=== PATIENT | female | born 1945 | race Caucasian/White ===

== ENCOUNTER 2018-06-25 00:36 | Inpatient (IN) | payer OTHER ==
[~2018-06-25] VITALS: Ht 160 cm; Wt 82.1 kg
[~2018-06-25 00:36] MED LIST: MOBIC7.5 M1 PO
--- NOTE | 2018-06-25 00:59 | ED GENERAL ADULT ---
History of Present Illness General Chief Complaint: General Adult Stated Complaint: PT C/O INCONTINENCE BOTH URINE/STOOL X'S 2 DAYS Source: patient, family Exam Limitations: no limitations Vital Signs & Intake/Output Vital Signs & Intake/Output Vital Signs Date Time Temp Pulse Resp B/P B/P Pulse O2 O2 Flow FiO2 Mean Ox Delivery Rate 06/25 0337 95.0 57 20 146/67 97 Room Air 06/25 0125 95 Room Air Room Air 06/25 0106 98.7 56 20 113/52 97 Room Air 06/25 0058 56 113/52 Allergies Coded Allergies: acetaminophen (From PERCOCET) (Intermediate, BILATERAL LEG SWELLING 11/09/17) oxycodone (From PERCOCET) (Intermediate, BILATERAL LEG SWELLING 11/09/17) Reconcile Medications Aripiprazole (Abilify) 10 MG TABLET 1 TAB PO DAILY DEPRESSION (Reported) Clonazepam 0.5 MG TABLET 1 TAB PO TID ANXIETY (Reported) Escitalopram Oxalate 10 MG TABLET 1 TAB PO DAILY DEPRESSION (Reported) Ferrous Sulfate 325 MG (65 MG IRON) TABLET 1 TAB PO DAILY IRON (Reported) Gabapentin 300 MG CAPSULE 1 CAP PO TID PAIN (Reported) Levothyroxine Sodium 125 MCG TABLET 1 TAB PO DAILY THYROID (Reported) Lisinopril 10 MG TABLET 1 TAB PO DAILY HTN (Reported) Metformin HCl 1,000 MG TABLET 1 TAB PO DAILY DM (Reported) Triage Nurses Notes Reviewed? yes Onset: Gradual Duration: day(s): Timing: recent history Injury Environment: home Severity: moderate Modifying Factors: Improves With: rest. Associated Symptoms: diarrhea, weakness HPI: 72 yo woman from home, h/o schizophrenia presents with constellation of issues. Per her daughter, "She just doesn't eat... and then she stooled and urinated on herself. Her stool was dark black and very smelly." She also has had worsening confusion. Per daughter, "She just walked out of the house in her housecoat and started wandering down the streets. She thought I was calling out to her... She just isn't safe." She notes no abdominal pain, fever, chills, dysuria, chest pain, dyspnea. She is otherwise well. Past History Medical History Any Pertinent Medical History? see below for history Cardiovascular: hyperlipidemia Psychiatric: anxiety, schizophrenia Endocrine: diabetes, TYPE 2 Surgical History Surgical History: non-contributory Psychosocial History What is your primary language Lao Family History Hx Contributory? No Review of Systems Review of Systems Constitutional: Denies: see HPI. Physical Exam Physical Exam General Appearance: well developed/nourished Rectal: heme negative stool Comments: Review of Systems - except as otherwise noted in HPI Review of Systems Constitutional:no symptoms. EENTM:no symptoms. Respiratory:no symptoms. Cardiovascular:no symptoms. GI:no symptoms. Genitourinary:no symptoms. Musculoskeletal:no symptoms. Skin:no symptoms. Neurological/Psychological:no symptoms. Hematologic/Endocrine:no symptoms. Immunologic/Allergic:no symptoms. All Other Systems: Reviewed and Negative Physical Exam Physical Exam General Appearance: well developed/nourished, no apparent distress Head: atraumatic, normal appearance Eyes: Bilateral: normal appearance. Ears, Nose, Throat: normal pharynx, normal ENT inspection except for dry [place] Neck: normal inspection, supple, full range of motion Respiratory: normal breath sounds, chest non-tender, no respiratory distress, quiet respiration, lungs clear Cardiovascular: regular rate/rhythm Gastrointestinal: normal bowel sounds, soft, non-tender to vigorous palpation, no organomegaly Back: normal inspection, normal range of motion Extremities: normal inspection, normal capillary refill, normal range of motion, no edema Neurologic/Psych: no motor/sensory deficits, awake, alert, oriented x 3 Skin: intact, normal color, warm/dry rectal: guiac negative, dark stool. Core Measures ACS in differential dx? No CVA/TIA Diagnosis: No Sepsis Present: No Sepsis Focused Exam Completed? No Progress Differential Diagnoses I considered the following diagnoses in my evaluation of the patient: schizophrenia, dehydration, uti, gastroenteritis, gi bleed vs other. Plan of Care: Orders Procedure Date/time Status Clear Liquid Diet 06/25 B Active CBC WITHOUT DIFFERENTIAL 06/25 06 Active BASIC ELECTROLYTES PLUS BUN&CR 06/25 06 Active Saline Lock 06/25 0400 Active Misc Message 06/25 040 Active ED Holding Orders 06/25 040 Active Admit to inpatient 06/25 040 Active PT Evaluate & Treat 06/25 032 Active Pathway - chart 06/25 0323 Active House Staff 06/25 0323 Active Patient Data 06/25 0323 Active Code Status 06/25 0323 Active BLOOD CULTURE 06/25 0300 Active Patient Data 06/25 0256 Active Add-on Test (ER Only) 06/25 0249 Active BLOOD CULTURE 06/25 0249 Active CULTURE,URINE 06/25 0208 Active URINALYSIS 06/25 100 Complete TROPONIN LEVEL 06/25 100 Complete LIPASE 06/25 100 Complete LACTIC ACID 06/25 100 Complete HEPATIC FUNCTION PANEL 06/25 100 Complete CBC WITHOUT DIFFERENTIAL 06/25 100 Complete BASIC METABOLIC PANEL 06/25 100 Complete AMYLASE 06/25 100 Complete EKG 06/25 100 Active VTE Mechanical Prophylaxis 06/25 UNK Active Vital Signs 06/25 UNK Active FingerStick- Glucose 06/25 UNK Active Activity/Ambulation 06/25 UNK Active PSYCHIATRIC CONSULT 06/25 UNK Active Current Medications Sig/Poli Start time Last Medication Dose Stop Time Status Admin Aripiprazole 10 MG DAILY 06/25 900 UNVr (Abilify) Ceftriaxone Sodium 1,000 MG DAILY 06/25 900 UNVr (Rocephin) Clonazepam 0.5 MG TID 06/25 900 UNVr (KlonoPIN) 07/02 08 Escitalopram Oxalate 10 MG DAILY 06/25 09 UNVr (Lexapro) Gabapentin 300 MG TID 06/25 900 UNVr (Neurontin) Levothyroxine Sodium 0.125 MG DAILY 06/25 09 UNVr (Synthroid) Heparin Sodium 5,000 UNIT Q8 06/25 06 UNVr (Porcine) Insulin Aspart 0 TIDAC 06/25 040 UNVr (NovoLOG) Sodium Chloride 1,000 ML Q13H 06/25 0400 UNVr (Normal Saline 0.9%) 06/26 0559 Acetaminophen 650 MG Q6P PRN 06/25 033 UNVr (Tylenol) Acetaminophen 1,000 MG Q6P PRN 06/25 0330 UNVr (Ofirmev) Ceftriaxone Sodium 1,000 MG ONCE ONE 06/25 030 UNVr 06/25 (Rocephin) 06/25 0301 0330 Laboratory Tests 06/25/18 0400: Lactic Acid Cancelled 06/25/18 0208: Urinalysis LIGHT H, Urine Color YEL, Urine Clarity CLDY H, Urine pH 6.0, Ur Specific Hitchcock 1.025, Urine Protein NEG, Urine Ketones NEG, Urine Nitrite NEG, Urine Bilirubin NEG, Urine Urobilinogen 0.2, Ur Leukocyte Esterase MOD H, Ur Microscopic SEDIMENT EXAMINED, Urine RBC 1-3, Urine WBC 5-10 H, Ur Epithelial Cells FEW, Urine Bacteria MOD H, Hyaline Casts RARE H, Urine Hemoglobin TRACE- INTACT, Urine Glucose NEG 06/25/18 0115: Anion Gap 10, Estimated GFR 44 L, BUN/Creatinine Ratio 20.0, Glucose 107 H, Lactic Acid 1.7, Calcium 9.7, Total Bilirubin 0.6, Direct Bilirubin 0.3, AST 27, ALT 29, Alkaline Phosphatase 87, Troponin I < 0.01, Total Protein 6.7, Albumin 4.0, Amylase 163 H, Lipase 162, CBC w Diff NO MAN DIFF REQ, RBC 3.61 L, MCV 88.9, MCH 30.4, MCHC 34.1, RDW 13.9, MPV 8.8, Gran % 61.5, Lymphocytes % 31.6, Monocytes % 4.2, Eosinophils % 1.7, Basophils % 1.0, Absolute Granulocytes 4.6, Absolute Lymphocytes 2.4, Absolute Monocytes 0.3, Absolute Eosinophils 0.1, Absolute Basophils 0.1 Microbiology 06/25 329 BLOOD: Blood Culture - RECD 06/25 0321 BLOOD: Blood Culture - RECD 06/25 0208 URINE ROUT: Urine Culture - RECD Diagnostic Imaging: Viewed by Me: Radiology Read, CT Scan. Discussed w/RAD: Radiology Read, CT Scan. Radiology Impression: PATIENT: KORIN OROZCO PRESENT AGE: 72 PATIENT ACCOUNT NO: [id number] : 45 LOCATION: [facility] ORDERING PHYSICIAN: Estevan Morgan MD SERVICE DATE: 06/25/18 EXAM TYPE: CAT - CT ABD & PELVIS W/O IV CONTRAS EXAMINATION: CT ABDOMEN AND PELVIS WITHOUT CONTRAST CLINICAL INFORMATION: Significant diarrhea COMPARISON: None TECHNIQUE: Multidetector volumetric imaging was performed from the superior aspect of the liver through the pubic symphysis. Sagittal and coronal reformatted images were obtained on the technologist's workstation. DLP: 676.38 mGy-cm FINDINGS: LUNG BASES: The visualized lung bases are unremarkable. LIVER, GALLBLADDER, AND BILIARY TREE: The liver is normal in size, shape, and attenuation. No focal hepatic lesion or biliary ductal dilatation is present. Patient is status post cholecystectomy. PANCREAS: There is partial fatty atrophy of the pancreas. SPLEEN: Unremarkable. ADRENAL GLANDS: Unremarkable. KIDNEYS AND URETERS: The kidneys are normal in size, shape, and attenuation. There is a 2.2 cm left upper pole renal cyst. No hydronephrosis, hydroureter, or calculi seen. No perinephric stranding. BLADDER: Unremarkable. GASTROINTESTINAL TRACT: Colonic diverticulosis is noted. Assessment for wall thickening in some segments of the colon is limited due to luminal collapse, though no significant pericolonic stranding is seen to strongly suggest a colitis. No evidence of bowel obstruction. The appendix is not discretely visualized. No free fluid or free air is seen. ABDOMINAL WALL: No significant hernia is appreciated. LYMPH NODES: Normal. VASCULAR: Scattered atherosclerotic calcifications are present. PELVIC VISCERA: Unremarkable. OSSEOUS STRUCTURES: Degenerative changes are noted in the spine. IMPRESSION: No acute findings identified in the abdomen/pelvis. Colonic diverticulosis. DICTATED BY: Mehdi Van MD DATE/TIME DICTATED:06/25/18199 PET CAREGIVER:YEIMI DATE/TIME TRANSCRIBED:06/25/18199 CONFIDENTIAL, DO NOT COPY WITHOUT APPROPRIATE AUTHORIZATION. <Electronically signed in Other Vendor System> SIGNED BY: Mehdi Van MD 06/25/18209 CXR Impression: PATIENT: KORIN OROZCO PRESENT AGE: 72 PATIENT ACCOUNT NO: [id number] : 45 LOCATION: [facility] ORDERING PHYSICIAN: Estevan Moragn MD SERVICE DATE: 06/25/18 EXAM TYPE: RAD - XRY- PORTABLE CHEST XRAY EXAMINATION: XR PORTABLE CHEST CLINICAL INFORMATION: Dyspnea COMPARISON: None TECHNIQUE: Portable frontal view of the chest was obtained. FINDINGS: The lungs are clear with no focal consolidation. No evidence of pneumothorax, pulmonary edema, or pleural effusions. The cardiomediastinal silhouette is unremarkable. No acute osseous findings. IMPRESSION: No acute cardiopulmonary findings. DICTATED BY: Mehdi Van MD DATE/TIME DICTATED:152 PET CAREGIVER:YEIMI DATE/TIME TRANSCRIBED:06/25/18152 CONFIDENTIAL, DO NOT COPY WITHOUT APPROPRIATE AUTHORIZATION. <Electronically signed in Other Vendor System> SIGNED BY: Mehdi Van MD 06/25/18157 Initial ED EKG: sinus, no acute changes, lafb, lower voltage Departure Departure Disposition: STILL A PATIENT Condition: Stable Clinical Impression Primary Impression: Weakness Secondary Impressions: Orthostasis, Renal failure, Schizophrenia, UTI (urinary tract infection) Referrals: Albino Boo APRN (PCP/Family) Departure Forms: Customer Survey General Discharge Information Admission Note Spoke With: Tereso Beyer MD Documentation of Exam: Documentation of any treatments & extenuating circumstances including Concerns Regarding Discharge (functional status, medication knowledge or non-compliance, living conditions, etc.) that warrant an admission rather than observation: pt with orthostatics, w/ increased bun/cr, in context of mild uti which together has likely exacerbated her schizophrenia. Pt merits gentle iv hydration, iv abx , psychiatric consult, and may need short vs snf placement. Critical Care Note Critical Care Note Critical Care Time: non-applicable
[2018-06-25 01:31] LABS: ABSOLUTE BASOPHIL COUNT 0.1 /CUMM (0.0-0.2); ABSOLUTE EOSINOPHIL COUNT 0.1 /CUMM (0.0-0.7); ABSOLUTE GRANULOCYTE CT 4.6 /CUMM (1.4-6.5); ABSOLUTE LYMPH COUNT 2.4 /CUMM (1.2-3.4); ABSOLUTE MONOCYTE COUNT 0.3 /CUMM (0.10-0.60); EOSINOPHIL % 1.7 % (0-5); GRANULOCYTE % 61.5 % (42.2-75.2); HEMATOCRIT 32.1 % (37-47); MEAN CORPUSCULAR HGB 30.4 PG (27.0-31.0); MEAN CORPUSCULAR HGB CONC 34.1 G/DL (33.0-37.0); MEAN CORPUSCULAR VOLUME 88.9 FL (81.0-99.0); MEAN PLATELET VOLUME 8.8 FL (7.4-10.4); PLATELET COUNT 143 /CUMM (130-400); RBC DISTRIBUTION WIDTH 13.9 % (11.5-14.5); RED BLOOD CELL CT 3.61 /CUMM (4.20-5.40); WHITE BLOOD CELL COUNT 7.5 /CUMM (4.8-10.8)
[2018-06-25] MEDS ORDERED: LEVOTHYROXINE125 MCG PO (01:41)
[2018-06-25] MEDS ORDERED: METFORMIN HCL1000 M1 PO (01:42)
[2018-06-25] MEDS ORDERED: CLONAZEPAM0.5 M2 PO (01:43)
[2018-06-25] MEDS ORDERED: GABAPENTIN300 M2 PO (01:44)
[2018-06-25] MEDS ORDERED: ESCITALOPRAM OX10 MG PO (01:45)
[2018-06-25] MEDS ORDERED: LISINOPRIL10 M1 PO (01:46)
[2018-06-25] MEDS ORDERED: ABILIFY10 M1 PO (01:47)
[2018-06-25] MEDS ORDERED: FERROUS SULFAT325 M3 PO (01:48)
--- NOTE | 2018-06-25 01:58 | RADIOLOGY REPORT ---
EXAMINATION: XR PORTABLE CHEST CLINICAL INFORMATION: Dyspnea COMPARISON: None TECHNIQUE: Portable frontal view of the chest was obtained. FINDINGS: The lungs are clear with no focal consolidation. No evidence of pneumothorax, pulmonary edema, or pleural effusions. The cardiomediastinal silhouette is unremarkable. No acute osseous findings. IMPRESSION: No acute cardiopulmonary findings.
--- NOTE | 2018-06-25 02:10 | CT SCAN REPORT ---
EXAMINATION: CT ABDOMEN AND PELVIS WITHOUT CONTRAST CLINICAL INFORMATION: Significant diarrhea COMPARISON: None TECHNIQUE: Multidetector volumetric imaging was performed from the superior aspect of the liver through the pubic symphysis. Sagittal and coronal reformatted images were obtained on the technologist's workstation. DLP: 676.38 mGy-cm FINDINGS: LUNG BASES: The visualized lung bases are unremarkable. LIVER, GALLBLADDER, AND BILIARY TREE: The liver is normal in size, shape, and attenuation. No focal hepatic lesion or biliary ductal dilatation is present. Patient is status post cholecystectomy. PANCREAS: There is partial fatty atrophy of the pancreas. SPLEEN: Unremarkable. ADRENAL GLANDS: Unremarkable. KIDNEYS AND URETERS: The kidneys are normal in size, shape, and attenuation. There is a 2.2 cm left upper pole renal cyst. No hydronephrosis, hydroureter, or calculi seen. No perinephric stranding. BLADDER: Unremarkable. GASTROINTESTINAL TRACT: Colonic diverticulosis is noted. Assessment for wall thickening in some segments of the colon is limited due to luminal collapse, though no significant pericolonic stranding is seen to strongly suggest a colitis. No evidence of bowel obstruction. The appendix is not discretely visualized. No free fluid or free air is seen. ABDOMINAL WALL: No significant hernia is appreciated. LYMPH NODES: Normal. VASCULAR: Scattered atherosclerotic calcifications are present. PELVIC VISCERA: Unremarkable. OSSEOUS STRUCTURES: Degenerative changes are noted in the spine. IMPRESSION: No acute findings identified in the abdomen/pelvis. Colonic diverticulosis.
--- NOTE | 2018-06-25 03:27 | History & Physical ---
Forest Tyson 06/25/18 0325: General Information and HPI MD Statement: I have seen and personally examined KORIN OROZCO and documented this H&P. The patient is a 72 year old F who presented with a patient stated chief complaint of altered mental status Source of Information: patient, family Exam Limitations: clinical condition, confusion, dementia History of Present Illness: This is a 72-year-old female with past medical history significant for she is a failure, depression, anxiety, anemia, hypothyroidism, hypertension, hyperlipidemia, diabetes mellitus was brought to the emergency room by family members for deterioration of mental status. Patient has history of schizophrenia with delusional thoughts, following psychiatrist for last couple of months. She has been taking Abilify 10 mg daily for schizophrenia. Patient reports that she has been having visual hallucinations and auditory hallucinations, talking to people who are . Patient reports that she is extremely weak for last couple of days, she is not eating or drinking. She is so tired to get out of bed, leading to stool and urine incontinence. According to the emergency room reports from daughter, she has been having unpredictable behavior for last week. As per daughter, she just walked out of the house in her pajama and started wandering down the streets. Daughter felt that she was not safe at home. On Further questioning patient reports one episode of diarrhea with black colored stool. She denied any nausea, vomiting, abdominal pain, fever or chills. She also reports urgency. She denied any frequency, dysuria, lower abdominal pain. She denied any chest pain, short of breath, cough, sick contact exposure or travel history. He denies smoking, alcohol abuse, illicit drug abuse. She reports being compliant with her medications Allergies/Medications Allergies: Coded Allergies: acetaminophen (From PERCOCET) (Intermediate, BILATERAL LEG SWELLING 11/09/17) oxycodone (From PERCOCET) (Intermediate, BILATERAL LEG SWELLING 11/09/17) Home Med list Aripiprazole (Abilify) 10 MG TABLET 1 TAB PO DAILY DEPRESSION (Reported) Clonazepam 0.5 MG TABLET 1 TAB PO TID ANXIETY (Reported) Escitalopram Oxalate 10 MG TABLET 1 TAB PO DAILY DEPRESSION (Reported) Ferrous Sulfate 325 MG (65 MG IRON) TABLET 1 TAB PO DAILY IRON (Reported) Gabapentin 300 MG CAPSULE 1 CAP PO TID PAIN (Reported) Levothyroxine Sodium 125 MCG TABLET 1 TAB PO DAILY THYROID (Reported) Lisinopril 10 MG TABLET 1 TAB PO DAILY HTN (Reported) Metformin HCl 1,000 MG TABLET 1 TAB PO DAILY DM (Reported) Compliance With Home Meds: FAIR Past History Travel History Traveled to [place] past 21 day No Medical History Cardiovascular: hyperlipidemia Psychiatric: anxiety, schizophrenia Endocrine: diabetes, hypothyroidism, TYPE 2 Surgical History Surgical History: non-contributory Past Family/Social History Psychosocial History Smoking Status: Never Smoked ETOH Use: denies use Illicit Drug Use: denies illicit drug use Review of Systems Review of Systems Constitutional: Reports: malaise, weakness. Denies: chills, diaphoresis, fever, unexplained weight loss. EENTM: Denies: blurred vision, double vision. Cardiovascular: Denies: chest pain, edema, orthopena, palpitations, peripheral edema, syncope. Respiratory: Denies: cough, hemoptysis, orthopnea, short of breath, sputum production. GI: Reports: diarrhea, bowel incontinence. Denies: abdominal pain, bloating. Genitourinary: Reports: urgency. Denies: discharge, dysuria, frequency, hematuria, hesitation, nocturia, pain. Neurological/Psychological: Reports: anxiety, cognitive dysfunction, depressed, dementia. Exam & Diagnostic Data Last 24 Hrs of Vital Signs/I&O Vital Signs Date Time Temp Pulse Resp B/P B/P Pulse O2 O2 Flow FiO2 Mean Ox Delivery Rate 06/25 0337 95.0 57 20 146/67 97 Room Air 06/25 0125 95 Room Air Room Air 06/25 0106 98.7 56 20 113/52 97 Room Air 06/25 0058 56 113/52 Intake & Output 06/25 0800 06/25 0000 06/24 1600 Intake Total 1000 Output Total 220 Balance 780 Intake, IV 1000 Output, Urine 220 Patient 86.183 kg Weight Physical Exam General Appearance Alert, Oriented X3, Cooperative Skin No Rashes, No Breakdown Skin Temp/Moisture Exam: Warm/Dry Sepsis Skin Exam (color): Normal for Ethnicity HEENT Atraumatic, PERRLA, EOMI, Mucous Membr. moist/pink Neck Supple, No JVD Lymphatic Axillary nl, Cervical nl Cardiovascular Regular Rate, Normal S1, Normal S2, No Murmurs Lungs Clear to Auscultation, Normal Air Movement Abdomen Normal Bowel Sounds, Soft, No Tenderness Neurological Strength at 5/5 X4 Ext, Normal Tone, Sensation Intact, Reflexes 2+ Extremities No Clubbing, No Cyanosis, No Edema Vascular Normal Pulses, Pulses Symmetrical Last 24 Hrs of Labs/David: Laboratory Tests 06/25/18 0400: Lactic Acid Cancelled 06/25/18 0208: Urinalysis LIGHT H, Urine Color YEL, Urine Clarity CLDY H, Urine pH 6.0, Ur Specific [place] 1.025, Urine Protein NEG, Urine Ketones NEG, Urine Nitrite NEG, Urine Bilirubin NEG, Urine Urobilinogen 0.2, Ur Leukocyte Esterase MOD H, Ur Microscopic SEDIMENT EXAMINED, Urine RBC 1-3, Urine WBC 5-10 H, Ur Epithelial Cells FEW, Urine Bacteria MOD H, Hyaline Casts RARE H, Urine Hemoglobin TRACE- INTACT, Urine Glucose NEG 06/25/18 0115: Anion Gap 10, Estimated GFR 44 L, BUN/Creatinine Ratio 20.0, Glucose 107 H, Lactic Acid 1.7, Calcium 9.7, Total Bilirubin 0.6, Direct Bilirubin 0.3, AST 27, ALT 29, Alkaline Phosphatase 87, Troponin I < 0.01, Total Protein 6.7, Albumin 4.0, Amylase 163 H, Lipase 162, CBC w Diff NO MAN DIFF REQ, RBC 3.61 L, MCV 88.9, MCH 30.4, MCHC 34.1, RDW 13.9, MPV 8.8, Gran % 61.5, Lymphocytes % 31.6, Monocytes % 4.2, Eosinophils % 1.7, Basophils % 1.0, Absolute Granulocytes 4.6, Absolute Lymphocytes 2.4, Absolute Monocytes 0.3, Absolute Eosinophils 0.1, Absolute Basophils 0.1 Microbiology 06/25 329 BLOOD: Blood Culture - RECD 06/25 321 BLOOD: Blood Culture - RECD 06/25 208 URINE ROUT: Urine Culture - RECD Assessment/Plan Assessment: This is a 72-year-old female with past medical history significant for she is a failure, depression, anxiety, anemia, hypothyroidism, hypertension, hyperlipidemia, diabetes mellitus was brought to the emergency room by family members for deterioration of mental status. Vitals afebrile, heart rate 56, respiratory rate 20, blood pressure 112/52, saturating at 97 on room air Labs WBC 7.5, hemoglobin 10, hematocrit 32, platelets 143 Urine analysis positive for esterase, 5-10 WBC, bacteria Sodium 139, potassium 4.3, BUN 24 and creatinine 1.2, glucose 107 Lactic acid 1.7 LFTs within normal limit Troponin negative Chest x-ray no acute cardiopulmonary findings ct abd No acute findings identified in the abdomen/pelvis. Colonic diverticulosis. 1. UTI Patient presented with generalized weakness and recent deterioration of her mental status. She is afebrile with a normal leukocytosis. However urine analysis positive for esterase, 5-10 WBCs and bacteria. She reported urgency. Denied any fever, chills, abdominal pain, frequency and dysuria. However given her mental status and urine findings we will treat her for UTI * Admitted to [facility] * Monitor vitals every shift * Monitor for fever, leukocytosis * IV ceftriaxone thousand milligrams daily * Follow-up urine cultures * Follow blood cultures 2 * IV fluids 2 bags of normal saline was ordered 2. Recent deterioration of her shcizophrenia Patient has history of schizophrenia with delusional thoughts, following psychiatrist for last couple of months. She has been taking Abilify 10 mg daily for schizophrenia. Patient reports that she has been having visual hallucinations and auditory hallucinations, talking to people who are . Patient daughter informs that she noticed recent deterioration of her thoughts. She is very delusional with hallucinations. * Continue Abilify 10 mg daily * Continue Lexapro 10 mg daily * Psychiatric consult in the a.m. 3. acute kidney injury Patient creatinine was 1.2. Baseline creatinine was unknown. However she has not been eating or drinking well. Most likely secondary to dehydration * Adequate fluid hydration * Follow-up creatinine in the a.m. * And avoid nephrotoxic agents * Please hold lisinopril meanwhile 4. Generalized weakness Patient reports that she is extremely weak for last couple of days, she is not eating or drinking. She is so tired to get out of bed, leading to stool and urine incontinence. * PT consult, may require placement 5. Orthostatic hypotension Patient blood pressure on lying 146/67 with heart rate 57 with acute drop of SBP 121/58 on standing with heart rate 108 * Most likely secondary to dehydration and low oral intake * Provide adequate hydration * Recheck orthostatics in the a.m. 6. Constipation Patient reports that she passes stools once a week. However she is incontinent of stool and urine for 1 day. * Bowel regimen as required Chronic medical conditions Depression continue Lexapro 10 daily Anxiety continue clonazepam 0.5 - 3 times daily Iron deficiency anemia continue iron sulfate Pain continue gabapentin 300- 3 times daily Hypothyroidism continue levothyroxine 125 mcg daily Hypertension hold lisinopril given creatinine 1.2 Diabetes mellitus continue Accu-Cheks and NovoLog sliding scale DVT prophylaxis subcu heparin Pain pathway Tylenol Consistent carbohydrate 3 diet Full code As Ranked By This Provider Problem List: 1. UTI (urinary tract infection) 2. Weakness 3. Renal failure Core Measures/Misc (07/14) Acute Coronary Syndrome ACS Diagnosis: No Congestive Heart Failure Congestive Heart Failure Diagnosis No Cerebrovascular Accident CVA/TIA Diagnosis: No VTE (View Protocol) VTE Risk Factors No risk factors No Mechanical VTE Prophylaxis d/t Medical Contraindication No VTE Pharm Prophylaxis d/t Medical Contraindication Sepsis (View protocol) Sepsis Present: No If YES complete Sepsis Event Note If YES complete Sepsis Event Note Maxine Beyer MD 06/25/18 0330: Core Measures/Misc (07/14) Sepsis (View protocol) If YES complete Sepsis Event Note If YES complete Sepsis Event Note Attending MD Review Statement Attending Statement Attending MD Statement: examined this patient, discuss w/resident/PA/LOG DATA TECHNICIAN, agreed w/resident/PA/LOG DATA TECHNICIAN, reviewed EMR data (avail) Attending Assessment/Plan: 72F PMH HTN, T2DM, schizophrenia brought in by family for recent deterioration. For the past few days/weeks, patient has been eating and drinking less, getting of out of bed less, and having delusional thoughts and unpredictable behavior. She was unable to give a proper history and has a normal neurological exam at this time. Afebrile, stable vitals with slight sinus bradycardia. No acute EKG changes. Clinically dehydrated and reflected in labs, with evidence of UTI. Will admit to medicine, Ceftriaxone, urine culture, hydration, psychiatry consult, PT eval, may require placement.
[2018-06-25 06:16] LABS: ABSOLUTE BASOPHIL COUNT 0 /CUMM (0.0-0.2); ABSOLUTE EOSINOPHIL COUNT 0.1 /CUMM (0.0-0.7); ABSOLUTE LYMPH COUNT 2.7 /CUMM (1.2-3.4); ABSOLUTE MONOCYTE COUNT 0.3 /CUMM (0.10-0.60); BASOPHIL % 0.8 % (0.0-2.0); EOSINOPHIL % 2.1 % (0-5); GRANULOCYTE % 48.6 % (42.2-75.2); MEAN CORPUSCULAR HGB 30.3 PG (27.0-31.0); MEAN CORPUSCULAR HGB CONC 33.6 G/DL (33.0-37.0); MEAN CORPUSCULAR VOLUME 90.1 FL (81.0-99.0); PLATELET COUNT 130 /CUMM (130-400); RBC DISTRIBUTION WIDTH 13.9 % (11.5-14.5); RED BLOOD CELL CT 3.33 /CUMM (4.20-5.40); WHITE BLOOD CELL COUNT 6.1 /CUMM (4.8-10.8)
--- NOTE | 2018-06-25 07:02 | PN- Housestaff ---
Subjective Follow-up For: Urinary tract infection, orthostatic changes, acute kidney injury, mental status change. Subjective: Patient seen and examined at bedside. Patient daughter was here. She was complaining bowel and bladder incontinence. She was also complaining constipation and loss of appetite since 8 months. She denies fever, chills, abdominal pain, diarrhea, burning micturition, fever, chills Review of Systems Constitutional: Reports: see HPI. Objective Last 24 Hrs of Vital Signs/I&O Vital Signs Date Time Temp Pulse Resp B/P B/P Pulse O2 O2 Flow FiO2 Mean Ox Delivery Rate 06/25 0733 98.2 52 20 155/62 98 Room Air 06/25 0556 97.8 51 16 138/60 95 Room Air Room Air 06/25 0337 95.0 57 20 146/67 97 Room Air 06/25 0125 95 Room Air Room Air 06/25 0106 98.7 56 20 113/52 97 Room Air 06/25 0058 56 113/52 Intake & Output 06/25 1600 06/25 0800 06/25 0000 Intake Total 1000 Output Total 220 Balance 780 Intake, IV 1000 Output, Urine 220 Patient 190 lb 190 lb Weight Physical Exam General Appearance: Alert, Oriented X3, Cooperative, No Acute Distress Skin: No Rashes, No Breakdown HEENT: Atraumatic, PERRLA, EOMI, Mucous Membr. moist/pink Lymphatic: Axillary nl, Cervical nl Cardiovascular: Normal S1, Normal S2 Lungs: Clear to Auscultation, Normal Air Movement Abdomen: Normal Bowel Sounds, Soft, No Tenderness Extremities: bilateral pedal edema Assessment/Plan Assessment: 72-year-old female with past medical history significant for depression, anxiety , schizophrenia(following psychiatrist), hypothyroidism, hypertension, hyperlipidemia, anemia, diabetes mellitus was brought to emergency department by family member for recent deterioration of mental status change. At the time of presentation to emergency department her vitals and labs are given below. Vitals: Afebrile, heart rate 56, respiratory rate 20, blood pressure 112/52, saturating at 97 on room air Labs WBC 7.5, hemoglobin 10, hematocrit 32, platelets 143 Urine analysis positive for esterase, 5-10 WBC, bacteria Sodium 139, potassium 4.3, BUN 24 and creatinine 1.2, glucose 107 Lactic acid 1.7 LFTs within normal limit Troponin negative Chest x-ray no acute cardiopulmonary findings CT abd: No acute findings identified in the abdomen/pelvis. Colonic diverticulosis without diverticulitis Problems list: *UTI *Recent deterioration of schizophrenia *Acute kidney injury *Generalized weakness *Orthostatic hypotension *Constipation *UTI: -Patient recent altered mental status, generalized weakness, and positive urinalysis for RBC, bacteria, esterase positive. Although patient denies burning micturition, urgency, frequency and no leukocytosis. The patient will be treated for UTI. -We will follow blood culture/urine culture -Leukocytosis -Antibiotic ceftriaxone 1000 mg started daily -We will hydrate her -We will keep her in observation Recent deterioration of her shcizophrenia: Patient recent history of schizophrenia with delusions and follow-up psychiatry and taking antipsychotic medication, recent mental status change could be associated with deterioration of schizophrenia. She also having visual and auditory hallucination history. We will continue her schizophrenia medication; -Continue Abilify 10 mg daily -Continue Lexapro 10 mg dailly -Psychiatric consult placed wairing for recommendation. Acute kidney injury: Patient having recently raised creatinine level up 1.2 and baseline creatinine was unknown. -It is most likely secondary to dehydration; -Fluid hydration done -Her latest creatinine is 1.1 this morning -Lisinopril does hold was kidney function normal will restart -Please avoid nephrotoxic medication Weakness: -Due to decrease oral intake the patient feeling weak -PT consult placed if she need short-term rehab or placement -Orthostatic hypotension: Patient blood pressure on lying 146/67 with heart rate 57 with acute drop of SBP 121/58 on standing with heart rate 108, *Is due to dehydration and low oral intake *Adequate hydration done Constipation: *Patient is now heavy stool/urine incontinence But she complaining that she had history of constipation one week We will continue her on bowel regimen Her other medical condition will continue the same treatment Iron deficiency anemia continue iron sulfate *Depression continue Lexapro 10 daily *Anxiety continue clonazepam 0.5 - 3 times daily *Pain continue gabapentin 300- 3 times daily and Percocet every 8 hour as needed *Hypothyroidism continue levothyroxine 125 mcg daily *Hypertension hold lisinopril given creatinine 1.2 *Diabetes mellitus continue Accu-Cheks and NovoLog sliding scale 5. Orthostatic hypotension 6. Constipation Patient reports that she passes stools once a week. However she is incontinent of stool and urine for 1 day. * Bowel regimen as required Chronic medical conditions DVT prophylaxis subcu heparin Pain pathway Tylenol Consistent carbohydrate 3 diet Full code Problem List: 1. UTI (urinary tract infection) 2. Renal failure 3. Schizophrenia Pain Ratin Pain Location: No pain Pain Goal: Remain pain free Pain Plan: Pain management pathway Tomorrow's Labs & Rationales: cbc
--- NOTE | 2018-06-25 11:56 | PN- Att Addend ---
Attending Addendum Attending Brief Note 72F PMH HTN, T2DM, schizophrenia brought in by family for recent deterioration. For the past few days/weeks, patient has been eating and drinking less, getting of out of bed less, and having delusional thoughts and unpredictable behavior. She has a normal neurological exam. Afebrile, stable vitals. PE unremrakble. no focal deficit and cranial nerves intact Admit for UTI, Ceftriaxone, follow up urine culture, hydration, psychiatry consult, PT eval, may require placement. Continue plan of care as per admitting physician Admission Lab Results I reviewed the following labs: Laboratory Tests 06/25 06/25 0556 0400 Chemistry Sodium (137 - 145 mmol/L) 140 Potassium (3.5 - 5.1 mmol/L) 3.9 Chloride (98 - 107 mmol/L) 109 H Carbon Dioxide (22 - 30 mmol/L) 24 Anion Gap (5 - 16) 7 BUN (7 - 17 mg/dL) 22 H Creatinine (0.5 - 1.0 mg/dL) 1.1 H Estimated GFR (>60 ml/min) 49 L BUN/Creatinine Ratio (7 - 25 %) 20.0 Lactic Acid Cancelled Hematology CBC w Diff NO MAN DIFF REQ WBC (4.8 - 10.8 /CUMM) 6.1 RBC (4.20 - 5.40 /CUMM) 3.33 L Hgb (12.0 - 16.0 G/DL) 10.1 L Hct (37 - 47 %) 30.0 L MCV (81.0 - 99.0 FL) 90.1 MCH (27.0 - 31.0 PG) 30.3 MCHC (33.0 - 37.0 G/DL) 33.6 RDW (11.5 - 14.5 %) 13.9 Plt Count (130 - 400 /CUMM) 130 MPV (7.4 - 10.4 FL) 8.0 Gran % (42.2 - 75.2 %) 48.6 Lymphocytes % (20.5 - 51.1 %) 43.8 Monocytes % (1.7 - 9.3 %) 4.7 Eosinophils % (0 - 5 %) 2.1 Basophils % (0.0 - 2.0 %) 0.8 Absolute Granulocytes (1.4 - 6.5 /CUMM) 3.0 Absolute Lymphocytes (1.2 - 3.4 /CUMM) 2.7 Absolute Monocytes (0.10 - 0.60 /CUMM) 0.3 Absolute Eosinophils (0.0 - 0.7 /CUMM) 0.1 Absolute Basophils (0.0 - 0.2 /CUMM) 0 06/258 0115 Chemistry Sodium (137 - 145 mmol/L) 139 Potassium (3.5 - 5.1 mmol/L) 4.3 Chloride (98 - 107 mmol/L) 107 Carbon Dioxide (22 - 30 mmol/L) 22 Anion Gap (5 - 16) 10 BUN (7 - 17 mg/dL) 24 H Creatinine (0.5 - 1.0 mg/dL) 1.2 H Estimated GFR (>60 ml/min) 44 L BUN/Creatinine Ratio (7 - 25 %) 20.0 Glucose (65 - 99 mg/dL) 107 H Lactic Acid (0.7 - 2.1 mmol/L) 1.7 Calcium (8.4 - 10.2 mg/dL) 9.7 Total Bilirubin (0.2 - 1.3 mg/dL) 0.6 Direct Bilirubin (< 0.4 mg/dL) 0.3 AST (14 - 36 U/L) 27 ALT (9 - 52 U/L) 29 Alkaline Phosphatase (<127 U/L) 87 Troponin I (< 0.11 ng/ml) < 0.01 Total Protein (6.3 - 8.2 g/dL) 6.7 Albumin (3.5 - 5.0 g/dL) 4.0 Amylase (30 - 110 U/L) 163 H Lipase (23 - 300 U/L) 162 Hematology CBC w Diff NO MAN DIFF REQ WBC (4.8 - 10.8 /CUMM) 7.5 RBC (4.20 - 5.40 /CUMM) 3.61 L Hgb (12.0 - 16.0 G/DL) 10.9 L Hct (37 - 47 %) 32.1 L MCV (81.0 - 99.0 FL) 88.9 MCH (27.0 - 31.0 PG) 30.4 MCHC (33.0 - 37.0 G/DL) 34.1 RDW (11.5 - 14.5 %) 13.9 Plt Count (130 - 400 /CUMM) 143 MPV (7.4 - 10.4 FL) 8.8 Gran % (42.2 - 75.2 %) 61.5 Lymphocytes % (20.5 - 51.1 %) 31.6 Monocytes % (1.7 - 9.3 %) 4.2 Eosinophils % (0 - 5 %) 1.7 Basophils % (0.0 - 2.0 %) 1.0 Absolute Granulocytes (1.4 - 6.5 /CUMM) 4.6 Absolute Lymphocytes (1.2 - 3.4 /CUMM) 2.4 Absolute Monocytes (0.10 - 0.60 /CUMM) 0.3 Absolute Eosinophils (0.0 - 0.7 /CUMM) 0.1 Absolute Basophils (0.0 - 0.2 /CUMM) 0.1 Urines Urinalysis LIGHT H Urine Color (YEL,AMB,STR) YEL Urine Clarity (CLEAR) CLDY H Urine pH (5.0 - 8.0) 6.0 Ur Specific [place] (1.001 - 1.035) 1.025 Urine Protein (NEG,<30 MG/DL) NEG Urine Ketones (NEG) NEG Urine Nitrite (NEG) NEG Urine Bilirubin (NEG) NEG Urine Urobilinogen (0.1 - 1.0 EU/dl) 0.2 Ur Leukocyte Esterase (NEG) MOD H Ur Microscopic SEDIMENT EXAMINED Urine RBC (0 - 5 /HPF) 1-3 Urine WBC (0 - 2 /HPF) 5-10 H Ur Epithelial Cells (NONE,FEW) FEW Urine Bacteria (NEG/NONE) MOD H Hyaline Casts (0/LPF) RARE H Urine Hemoglobin (NEG) TRACE-INTACT Urine Glucose (N MG/DL) NEG Admission Meds I reviewed the following Meds: Current Medications Sig/Poli Start time Last Medication Dose Stop Time Status Admin Aripiprazole 10 MG DAILY 06/25 900 AC 06/25 (Abilify) 899 Ceftriaxone Sodium 1,000 MG DAILY 06/25 900 AC 06/25 (Rocephin) 09 Clonazepam 0.5 MG TID 06/25 900 AC 06/25 (KlonoPIN) 07/02 859 09 Escitalopram Oxalate 10 MG DAILY 06/25 900 AC 06/25 (Lexapro) 09 Gabapentin 300 MG TID 06/25 900 AC 06/25 (Neurontin) 0900 Heparin Sodium 5,000 UNIT Q8 06/25 0600 AC 06/25 (Porcine) 0700 Insulin Aspart 0 TIDAC 06/25 0400 AC (NovoLOG) Levothyroxine Sodium 0.125 MG DAILY AC 06/25 0700 AC 06/25 (Synthroid) 0707 Polyethylene Glycol 17 GM DAILY PRN 06/25 0415 AC (Miralax) Senna 187 MG AT BEDTIME PRN 06/25 0415 AC (Senokot) Sodium Chloride 1,000 ML Q13H 06/25 0400 AC 06/25 (Normal Saline 0.9%) 06/26 0559 0424
[2018-06-25 20:44] VITALS: BP 170/70
[2018-06-26 05:46] VITALS: BP 142/86
[2018-06-26 08:00] VITALS: BP 138/86
--- NOTE | 2018-06-26 08:19 | PN- Housestaff ---
See Addendum Subjective Follow-up For: Altered mental status, acute kidney injury, aggravated schizophrenia Subjective: Patient seen and examined at bedside. She was not complaining fever, chills, chest pain, abdominal pain, diarrhea, constipation, burning micturition. She is still having no control of bowel or bladder. Review of Systems Constitutional: Reports: see HPI. Objective Last 24 Hrs of Vital Signs/I&O Vital Signs Date Time Temp Pulse Resp B/P B/P Pulse O2 O2 Flow FiO2 Mean Ox Delivery Rate 06/26 1515 152/68 06/26 1440 97.9 53 18 163/64 97 Room Air 06/26 0800 56 138/86 06/26 0546 97.6 49 18 142/86 98 Room Air 06/25 2044 98.1 52 18 170/70 96 Room Air 06/25 2037 97.8 51 20 152/65 96 Room Air 06/25 1915 97.7 56 16 160/79 95 Room Air Intake & Output 06/26 1600 06/26 0800 06/26 0000 Intake Total 1000 240 860 Output Total 1 0 Balance 999 240 860 Intake, IV 860 Intake, Oral 1000 240 0 Number 1 Bowel Movements Output, Stool 1 Output, Urine 0 Patient 181 lb Weight Physical Exam General Appearance: Alert, Oriented X3, Cooperative, No Acute Distress Skin: No Rashes, No Breakdown, No Significant Lesion HEENT: Atraumatic, PERRLA, EOMI, Mucous Membr. moist/pink Neck: Supple, No JVD, No thryomegaly, +2 Carotid Pulse wo Bruit, No LAD Lymphatic: Axillary nl, Cervical nl Lungs: Clear to Auscultation, Normal Air Movement Abdomen: Normal Bowel Sounds, Soft, No Tenderness, No Hepatospenomegaly, No Masses Neurological: Normal Gait, Normal Speech, Normal Tone, Sensation Intact Extremities: bilateral pedal edema Assessment/Plan Assessment: 72-year-old female with past medical history significant for depression, anxiety , schizophrenia(following psychiatrist), hypothyroidism, hypertension, hyperlipidemia, anemia, diabetes mellitus was brought to emergency department by family member for recent deterioration of mental status change. At the time of presentation to emergency department her vitals and labs are given below. Vitals: Afebrile, heart rate 56, respiratory rate 20, blood pressure 112/52, saturating at 97 on room air Labs WBC 7.5, hemoglobin 10, hematocrit 32, platelets 143 Urine analysis positive for esterase, 5-10 WBC, bacteria Sodium 139, potassium 4.3, BUN 24 and creatinine 1.2, glucose 107 Lactic acid 1.7 LFTs within normal limit Troponin negative Chest x-ray no acute cardiopulmonary findings CT abd: No acute findings identified in the abdomen/pelvis. Colonic diverticulosis without diverticulitis Problems list: *UTI *Recent deterioration of schizophrenia *Acute kidney injury *Generalized weakness *Orthostatic hypotension *Constipation *UTI: -Patient recent altered mental status, generalized weakness, and positive urinalysis for RBC, bacteria, esterase positive. Although patient denies burning micturition, urgency, frequency and no leukocytosis. The patient will be treated for UTI. -We will follow blood culture/urine culture -Leukocytosis -Antibiotic ceftriaxone 1000 mg started daily -We will hydrate her -We will keep her in observation Recent deterioration of her shcizophrenia: Patient recent history of schizophrenia with delusions and follow-up psychiatry and taking antipsychotic medication, recent mental status change could be associated with deterioration of schizophrenia. -She is still having psychiatric symptoms -I call psychiatrist she will follow her -Anticipated discharge if she was stable from psychiatry point of view She also having visual and auditory hallucination history. We will continue her schizophrenia medication; -Continue Abilify 10 mg daily -Continue Lexapro 10 mg dailly -Psychiatric consult placed wairing for recommendation. Acute kidney injury: Patient having recently raised creatinine level up 1.2 and baseline creatinine was unknown. -It is most likely secondary to dehydration; -Fluid hydration done -Her latest creatinine is 1.1 this morning -Lisinopril does hold was kidney function normal will restart -Please avoid nephrotoxic medication Weakness: -Due to decrease oral intake the patient feeling weak -PT consult placed if she need short-term rehab or placement -Orthostatic hypotension: Patient blood pressure on lying 146/67 with heart rate 57 with acute drop of SBP 121/58 on standing with heart rate 108, at the time of presentation to emergency department *Now she is vitally stable *Is due to dehydration and low oral intake *Adequate hydration done Constipation: *Patient is now heavy stool/urine incontinence But she complaining that she had history of constipation one week We will continue her on bowel regimen Her other medical condition will continue the same treatment Iron deficiency anemia continue iron sulfate *Depression continue Lexapro 10 daily *Anxiety continue clonazepam 0.5 - 3 times daily *Pain continue gabapentin 300- 3 times daily and Percocet every 8 hour as needed *Hypothyroidism continue levothyroxine 125 mcg daily *Hypertension hold lisinopril given creatinine 1.2 *Diabetes mellitus continue Accu-Cheks and NovoLog sliding scale *Anticipated discharge if she is stable from psychiatry Problem List: 1. Fracture of fifth metatarsal bone of right foot 2. Weakness 3. UTI (urinary tract infection) 4. Schizophrenia Pain Ratin Pain Location: No pain Pain Goal: Remain pain free Pain Plan: Pain management. Tomorrow's Labs & Rationales: Urinalysis
[2018-06-26 08:48] LABS: ABSOLUTE BASOPHIL COUNT 0 /CUMM (0.0-0.2); ABSOLUTE EOSINOPHIL COUNT 0.1 /CUMM (0.0-0.7); ABSOLUTE GRANULOCYTE CT 2.6 /CUMM (1.4-6.5); ABSOLUTE LYMPH COUNT 1.6 /CUMM (1.2-3.4); ABSOLUTE MONOCYTE COUNT 0.2 /CUMM (0.10-0.60); BASOPHIL % 0.6 % (0.0-2.0); HEMATOCRIT 31.6 % (37-47); MEAN CORPUSCULAR HGB 30.2 PG (27.0-31.0); MEAN CORPUSCULAR VOLUME 88.6 FL (81.0-99.0); MEAN PLATELET VOLUME 8.4 FL (7.4-10.4); PLATELET COUNT 125 /CUMM (130-400); RBC DISTRIBUTION WIDTH 14.3 % (11.5-14.5); RED BLOOD CELL CT 3.57 /CUMM (4.20-5.40); WHITE BLOOD CELL COUNT 4.6 /CUMM (4.8-10.8)
--- NOTE | 2018-06-26 08:59 | Patient Discharge Instructions ---
Discharge Instructions General Discharge Information Special Instructions: -In case of any change in behaviour please contact on this number [phone] - Please follow up with your primary care physician within 1-2 weeks of discharge. Inform your primary care physician of this admission to [facility]. - Continue your current medications per discharge instructions. - Please watch for these problems: Fever, Chills, Nausea, Vomiting, Shortness of Breath, Productive Cough, Chest Pain/Discomfort, Abdominal Pain, Active Bleeding or Bloody urine/stool. Diet Continue normal diet: Yes Recommended Diet: Heart Healthy Activity Full Activity/No Limits: Yes Acute Coronary Syndrome Inclusion Criteria At DC or during hospital stay patient has or had the following: ACS DIAGNOSIS No Discharge Core Measures Meds if any: Prescribed or Continued at Discharge Meds if any: NOT Prescribed or Continued at Discharge Congestive Heart Failure Inclusion Criteria At DC or during hospital stay patient has or had the following: CHF DIAGNOSIS No Discharge Core Measures Meds if any: Prescribed or Continued at Discharge Meds if any: NOT Prescribed or Continued at Discharge Cerebrovascular accident Inclusion Criteria At DC or during hospital stay patient has or had the following: CVA/TIA Diagnosis No Discharge Core Measures Meds if any: Prescribed or Continued at Discharge Meds if any: NOT Prescribed or Continued at Discharge Venous thromboembolism Inclusion Criteria VTE Diagnosis No VTE Type NONE VTE Confirmed by (Test) NONE Discharge Core Measures - Per Current guidelines, there needs to be overlap - treatment for the first 5 days of Warfarin therapy. - If discharged on Warfarin prior to 5 days of - overlap therapy, the patient will need to be - assessed for post discharge needs including - *Post discharge parental anticoagulation - *Warfarin and/or parental anticoagulation education - *Follow up date to check INR post discharge At least 5 days overlap therapy as Inpatient No Meds if any: Prescribed or Continued at Discharge Note: Overlap Therapy is Warfarin and Anticoagulant Meds if any: NOT Prescribed or Continued at Discharge
--- NOTE | 2018-06-26 13:24 | PN- Att Addend ---
Attending Addendum Attending Brief Note 72F PMH HTN, T2DM, schizophrenia brought in by family for recent deterioration. Patient having active auditory and visual hallucinations. Afebrile, stable vitals. PE unremrakble. no focal deficit and cranial nerves intact 1. Admitted for UTI, Ceftriaxone, follow up urine culture neagtive so far. 2. psychiatry consult placed. 3. PT eval, may require placement. gi/dvt prophyalxis. Appears medically stable and discharge planning based on [facility] recommendations Admission Lab Results I reviewed the following labs: Laboratory Tests 06/26 06/26 0855 0659 Chemistry Sodium (137 - 145 mmol/L) 141 Potassium (3.5 - 5.1 mmol/L) 4.1 Chloride (98 - 107 mmol/L) 108 H Carbon Dioxide (22 - 30 mmol/L) 27 Anion Gap (5 - 16) 6 BUN (7 - 17 mg/dL) 12 Creatinine (0.5 - 1.0 mg/dL) 0.9 Estimated GFR (>60 ml/min) > 60 BUN/Creatinine Ratio (7 - 25 %) 13.3 Hematology CBC w Diff NO MAN DIFF REQ WBC (4.8 - 10.8 /CUMM) 4.6 L RBC (4.20 - 5.40 /CUMM) 3.57 L Hgb (12.0 - 16.0 G/DL) 10.8 L Hct (37 - 47 %) 31.6 L MCV (81.0 - 99.0 FL) 88.6 MCH (27.0 - 31.0 PG) 30.2 MCHC (33.0 - 37.0 G/DL) 34.0 RDW (11.5 - 14.5 %) 14.3 Plt Count (130 - 400 /CUMM) 125 L MPV (7.4 - 10.4 FL) 8.4 Gran % (42.2 - 75.2 %) 57.0 Lymphocytes % (20.5 - 51.1 %) 34.6 Monocytes % (1.7 - 9.3 %) 4.8 Eosinophils % (0 - 5 %) 3.0 Basophils % (0.0 - 2.0 %) 0.6 Absolute Granulocytes (1.4 - 6.5 /CUMM) 2.6 Absolute Lymphocytes (1.2 - 3.4 /CUMM) 1.6 Absolute Monocytes (0.10 - 0.60 /CUMM) 0.2 Absolute Eosinophils (0.0 - 0.7 /CUMM) 0.1 Absolute Basophils (0.0 - 0.2 /CUMM) 0 Admission Meds I reviewed the following Meds: Current Medications Sig/Poli Start time Last Medication Dose Stop Time Status Admin Aripiprazole 10 MG DAILY 06/25 09 AC 06/26 (Abilify) 0921 Ceftriaxone Sodium 1,000 MG DAILY 06/25 09 AC 06/26 (Rocephin) 0934 Clonazepam 0.5 MG TID 06/25 900 AC 06/26 (KlonoPIN) 07/02 0859 0834 Escitalopram Oxalate 10 MG DAILY 06/25 09 AC 06/26 (Lexapro) 0921 Gabapentin 300 MG TID 06/25 09 AC 06/26 (Neurontin) 0921 Heparin Sodium 5,000 UNIT Q8 06/25 0600 AC 06/26 (Porcine) 0610 Insulin Aspart 0 TIDAC 06/25 0400 AC (NovoLOG) Levothyroxine Sodium 0.125 MG DAILY AC 06/25 0700 AC 06/26 (Synthroid) 0610 Polyethylene Glycol 17 GM DAILY PRN 06/25 0415 AC (Miralax) Senna 187 MG AT BEDTIME PRN 06/25 0415 AC (Senokot)
[2018-06-26 14:40] VITALS: BP 163/64
[2018-06-26 15:15] VITALS: BP 152/68
--- NOTE | 2018-06-26 19:11 | Cons- Psychiatry ---
Psychiatric Consult Date of Consult: 06/26/18 Allergies: Coded Allergies: acetaminophen (From PERCOCET) (Intermediate, BILATERAL LEG SWELLING 11/09/17) oxycodone (From PERCOCET) (Intermediate, BILATERAL LEG SWELLING 11/09/17) Past History Past Medical History Cardiovascular: hyperlipidemia Psychiatric: anxiety, schizophrenia Endocrine: diabetes, hypothyroidism, TYPE 2 Past Surgical History Surgical History: non-contributory Assessment/Plan Impression: I spoke with pt and fully evaluated her. She is hallucinating and paranoid and not processing information properly. She may be both mildly psychotic and delirious but it can be be ruled out that all her symptoms are attributable to delirium. She was not oriented and attention and concentration were not intact. I will reevaluate and write full evaluation tomorrow. Impression Delirium possible component of psychosis. Pt cannot leave AMA or be discharged. Will follow. Carleen
[2018-06-26 21:23] VITALS: BP 147/79
[2018-06-27 05:54] VITALS: BP 120/57
--- NOTE | 2018-06-27 06:56 | PN- Housestaff ---
Vinnie Pascal 06/27/18 0655: Subjective Follow-up For: Recently aggravated schizophrenia, Altered mental status/confusion Active hallucination and paranoid delusion Urinary tract infection Subjective: Patient seen and examined at bedside. Nurse told me she saw a man in a boy in the room. She was oriented in time sent. She remembered the 3 words which she was told by the psychiatric yesterday. Currently she does not look she is psychotic. She denies fever, chill, chest pain, palpitation, abdominal pain, diarrhea, constipation, burning micturition Review of Systems Constitutional: Reports: see HPI. Objective Last 24 Hrs of Vital Signs/I&O Vital Signs Date Time Temp Pulse Resp B/P B/P Pulse O2 O2 Flow FiO2 Mean Ox Delivery Rate 06/27 0554 97.9 51 16 120/57 95 06/26 2123 98.4 52 20 147/79 100 Room Air 06/26 1515 152/68 06/26 1440 97.9 53 18 163/64 97 Room Air Intake & Output 06/27 1600 06/27 0800 06/27 0000 Intake Total 480 730 Output Total Balance 480 730 Intake, IV 0 10 Intake, Oral 480 720 Number 0 0 Bowel Movements . Physical Exam General Appearance: Alert, Oriented X3, Cooperative, No Acute Distress Lymphatic: Axillary nl, Cervical nl Cardiovascular: Regular Rate, Normal S1, Normal S2, No Murmurs Lungs: Clear to Auscultation, Normal Air Movement Abdomen: Normal Bowel Sounds, Soft, No Tenderness Extremities: No Clubbing, No Cyanosis, Pitting edema Assessment/Plan Assessment: 72-year-old female with past medical history significant for depression, anxiety , schizophrenia(following psychiatrist), hypothyroidism, hypertension, hyperlipidemia, anemia, diabetes mellitus was brought to emergency department by family member for recent deterioration of mental status change. At the time of presentation to emergency department her vitals and labs are given below. Vitals: Afebrile, heart rate 56, respiratory rate 20, blood pressure 112/52, saturating at 97 on room air Labs WBC 7.5, hemoglobin 10, hematocrit 32, platelets 143 Urine analysis positive for esterase, 5-10 WBC, bacteria Sodium 139, potassium 4.3, BUN 24 and creatinine 1.2, glucose 107 Lactic acid 1.7 LFTs within normal limit Troponin negative Chest x-ray no acute cardiopulmonary findings CT abd: No acute findings identified in the abdomen/pelvis. Colonic diverticulosis without diverticulitis Problems list: *UTI *Recent deterioration of schizophrenia *Acute kidney injury *Generalized weakness *Orthostatic hypotension *Constipation *UTI: -Patient recent altered mental status, generalized weakness, and positive urinalysis for RBC, bacteria, esterase positive. Although patient denies burning micturition, urgency, frequency and no leukocytosis. The patient treated for UTI. -Blood culture, urine culture is negative for microorganisms -Leukocytosis subsided -Antibiotic ceftriaxone 1000 mg started daily Recent deterioration of her shcizophrenia: Patient recent history of schizophrenia with delusions and follow-up psychiatry and taking antipsychotic medication, recent mental status change could be associated with deterioration of schizophrenia. -Anticipated discharge if she was stable from psychiatry point of view She also having visual and auditory hallucination history. We will continue her schizophrenia medication; -Continue Abilify 10 mg daily -Continue Lexapro 10 mg dailly -Psychiatric consult placed recommendation appreciated -According to psychiatrist she is not psychotic but she having delusion and hallucination and also she is paranoid. Acute kidney injury: Patient having recently raised creatinine level up 1.2 and baseline creatinine was unknown. -It is most likely secondary to dehydration; -Fluid hydration done -Her latest creatinine is 1.1 this morning -Lisinopril does hold was kidney function normal will restart -Please avoid nephrotoxic medication Weakness: -Due to decrease oral intake the patient feeling weak -PT consult placed if she need short-term rehab or placement -Orthostatic hypotension: Patient blood pressure on lying 146/67 with heart rate 57 with acute drop of SBP 121/58 on standing with heart rate 108, at the time of presentation to emergency department *Now she is vitally stable *Is due to dehydration and low oral intake *Adequate hydration done Constipation: *Patient is now heavy stool/urine incontinence But she complaining that she had history of constipation one week We will continue her on bowel regimen Her other medical condition will continue the same treatment Iron deficiency anemia continue iron sulfate *Depression continue Lexapro 10 daily *Anxiety continue clonazepam 0.5 - 3 times daily *Pain continue gabapentin 300- 3 times daily and Percocet every 8 hour as needed *Hypothyroidism continue levothyroxine 125 mcg daily *Hypertension hold lisinopril given creatinine 1.2 *Diabetes mellitus continue Accu-Cheks and NovoLog sliding scale *Anticipated discharge if she is stable from psychiatry Problem List: 1. Schizophrenia 2. Renal failure Pain Ratin Pain Location: Pain in the right food Pain Goal: Remain pain free Pain Plan: Pain management pathway Tomorrow's Labs & Rationales: No labs Chapo Inman 06/27/18 1015: Attending MD Review Statement Attending Statement Attending MD Statement: examined this patient, discuss w/resident/PA/AUTOMOBILE REPOSSESSOR, agreed w/resident/PA/AUTOMOBILE REPOSSESSOR, discussed with family, reviewed EMR data (avail), discussed with nursing, discussed with case mgmt, reviewed images, amended to note Attending Assessment/Plan: Patient completed UTI treatment with iv antibiotics. She is sitting comfortably in her chair and nurse reported still active visual hallucinations. Pyshc follow up today and discharge planning based on pyshc recommendations.
[2018-06-27 07:54] VITALS: BP 118/62
[2018-06-27 14:38] VITALS: BP 124/64
[2018-06-27 21:21] VITALS: BP 130/62
[2018-06-28 07:00] VITALS: BP 130/60
--- NOTE | 2018-06-28 08:38 | PN- Housestaff ---
See Addendum Subjective Follow-up For: Recently aggravated schizophrenia, Altered mental status/confusion Active hallucination and paranoid delusion Urinary tract infection Subjective: Patient asleep during examination. Told by nurse and sitter she continues to have hallucinations/delusions. Psychiatry follow up pending. Patient medically stable off IV antibitoics. Will continue to monitor. Review of Systems Constitutional: Denies: see HPI. Objective Last 24 Hrs of Vital Signs/I&O Vital Signs Date Time Temp Pulse Resp B/P B/P Pulse O2 O2 Flow FiO2 Mean Ox Delivery Rate 06/28 700 97.6 58 20 130/60 98 Room Air 06/27 2200 18 06/27 2121 98.3 50 50 130/62 98 Room Air 06/27 1438 98.1 84 20 124/64 99 Room Air Intake & Output 06/28 1600 06/28 0800 06/28 0000 Intake Total 480 240 Output Total Balance 480 240 Intake, Oral 480 240 Physical Exam General Appearance: Alert, No Acute Distress Skin: No Rashes, No Breakdown HEENT: EOMI, Mucous Membr. moist/pink Cardiovascular: Regular Rate, Normal S1, Normal S2 Lungs: Clear to Auscultation, Normal Air Movement Abdomen: Normal Bowel Sounds, Soft, No Tenderness Vascular: Normal Pulses, Pulses Symmetrical Current Medications: Current Medications Sig/Poli Start time Last Medication Dose Route Stop Time Status Admin Aripiprazole 10 MG DAILY 06/25 900 AC 06/28 PO 0904 Clonazepam 0.5 MG TID 06/25 900 AC 06/28 PO 07/02 0859 0904 Escitalopram Oxalate 10 MG DAILY 06/25 900 AC 06/28 PO 09 Gabapentin 300 MG TID 06/25 900 AC 06/28 PO 0904 Heparin Sodium 5,000 UNIT Q8 06/25 06 AC 06/28 (Porcine) SC 0542 Insulin Aspart 0 TIDAC 06/25 0400 AC 06/27 SC 1251 Levothyroxine Sodium 0.125 MG DAILY AC 06/25 07 AC 06/28 PO 0542 Polyethylene Glycol 17 GM DAILY PRN 06/25 0415 AC PO Senna 187 MG AT BEDTIME PRN 06/25 0415 AC PO Assessment/Plan Assessment: 72-year-old female with past medical history significant for depression, anxiety , schizophrenia(following psychiatrist), hypothyroidism, hypertension, hyperlipidemia, anemia, diabetes mellitus was brought to emergency department by family member for recent deterioration of mental status change. 06/28: Patient cannot go AMA at this point. Psychiatry seen patient. Continuing UTI treatment for now and psychiatric regimen. Patient is afebrile with stable vital signs. Will follow up official psychiatry note, recommendations followed. Problems list: UTI Recent deterioration of schizophrenia Acute kidney injury Generalized weakness Orthostatic hypotension Constipation PLAN: * Patient on IV ceftriaxone for treatment of UTI; no symptoms reported but positive UA * Psychiatry has seen patient: Abilify 5mg PO daily; Klonopin 0.5mg BID, Lexapro 10mg PO, Neurontin 300mg BID; Seroquel 300mg Daily; 25mg BID PRN DVT PPx: heparin sc Diet: CC3 FULL CODE Problem List: 1. UTI (urinary tract infection) 2. Schizophrenia Pain Ratin Pain Location: denies pain at this time Pain Goal: Remain pain free Pain Plan: as per pain pathway Tomorrow's Labs & Rationales: none
[2018-06-28 14:52] VITALS: BP 128/68
[2018-06-28 21:44] VITALS: BP 120/50
--- NOTE | 2018-06-28 23:13 | Cons- Psychiatry ---
Psychiatric Consult Date of Consult: 06/28/18 Reason for Consult: VH, paranoid delusions, mild agitation. History of Present Illness: Dulce Martínez is a pleasant 70 y/o Female no clear prior psy with a 9 mo h/o psychotic phenomenology in form of well formed VH usually in evening time and paranoid delusions surrounding the visions. Pt had a prior psychiatric hospitalization at [facility] back in winter due to worsening psychosis. Pt was paranoid and restless, preocuppied with VH.This time admit to was prompted by a week h /o worsening confusion and restlessness and somewaht increased preocupation with VH. Upon admit an UTI was found and atbs tx was instituted. Per rapid assessment by psy on 06/25 pt was ofund to be highly inattentive , VH and delusional ideas. Last nigth she had an episode where she saw " multiple people with guns telling her they were there to kill her. She is hypervigilant and concerned about some plot in the hospital. However able to talk about her symptoms calmly w/o any evidence of repsonse to IS. Sustaining attention and cooperating with interview. She claims she was taking Seroquel 300 mg QHS at home which helped with her sleep and the frequency of such hallucinations. Pt denies any symptoms of anxiety or depression. Daughter is at bedside so I was able to get better history. Per saranyather this past week and a half pt has been worsening with some awakenings in evening and preocuppations with hallucinations and specifically DOA she was found wandering outside of the house. Saranyather acknowledges worsening memory past few months with perseveration and word finding difficulties. Psychotic phenomenology has been ongoing for the past 9 mo but srinivasa only learned about it back in sep when pt was admitted. Pt was able somehow to keep it hidden from family. Pt also has had episodes of confusion around the kitchen and family was instructed by PC to find extra supervision in the house Saranyather mentions yesterday she was told pt will be transferred to psychiatry today. No evidence of such discussion in the chart. Daughter would like her to be calmer and less distressed by such phenomena. Also interested in extra level of supervision if possible. Pt has VN service only on weekends? and used to attend [facility] till her ankle sprain. PPHx. One prior psy hospitalization at [facility] in [place]. Stayed for abour 4-5 days. No prior SA or SIB. Pt current psychiatrist is Dr. Andrade at [place] sees her q 2mo. Current regimen is Lexapro 10 mg daily. Neurontin 300 mg TID Klonopin 0.5 mg TID. Abilify 10 mg daily. Unclear if she has been taking Seroquel or not. per daughter she is taking Seroquel 300 mg HS. but in med recs from admit only antipsychotic was Abilify Since admit pt only been getting abilify as antipsychotic regimen. No SUhX FPHx Denies Med issues Pt has been having increased falls lately. Ankle sprain. see medical notes. Social Hx Living at home with srinivasa. son- in law and grandchild. 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 Per pt she likes ot watch TV " [employer]" MSE Pleasant elderly female. Restricted affect. fair eye contact. NO PMA/PMR. Cooperative with interview. NO SI/HI. Endorses VH last nigth " people there to kill me going through the windows" No hallucinations currently. hypervigilant and guarded at times. AAOX3. Able to count backwards by 2 32-18. Recall 10/30. I/J Fair to limited. Labs reviewed. A/P 70 y/o Female Late onset psychosis. Differential remains broad with Major Neurocogntive Dx hihg in the list./ LAte onset schizphrenia lower in the diff. Pt needs proper workup by Cogntive Neurology. Assessment by Neuropsychology as well. MRI B12, folate and RPR as part of workup. Recent acute worsening in MS obeys most likely to underlying infectious process. Would do a switch in AP regimen will decrease Abilify to 5 mg daily and discontinue afterwards and restart Seroquel at 200 -300 mg HS ( per josephine she was taking such dose). Monitor SE. sedation. OH. Decrease klonopin to 0.5 BId , continue Lexapro at 10 mg daily. Pt does not want to go to IP psy. Not enough evidence for involuntary commitment. Will reassess tomorrow after med changes. Allergies: Coded Allergies: acetaminophen (From PERCOCET) (Intermediate, BILATERAL LEG SWELLING 11/09/17) oxycodone (From PERCOCET) (Intermediate, BILATERAL LEG SWELLING 11/09/17) Past History Past Medical History Cardiovascular: hyperlipidemia Psychiatric: anxiety, schizophrenia Endocrine: diabetes, hypothyroidism, TYPE 2 Past Surgical History Surgical History: non-contributory
[2018-06-29 05:31] VITALS: BP 118/58
--- NOTE | 2018-06-29 07:43 | PN- Housestaff ---
Vinnie Pascal 06/29/18 0743: Subjective Follow-up For: Recently aggravate his schizophrenia, UTI Subjective: Patient seen at bedside with sitter. She was sleeping. According to the nurse and sitter she having no active complaint of delusion and hallucination. I spoke with the nurse and sitter that if she got any delusion and hallucination let me know. Review of Systems Constitutional: Reports: see HPI. Objective Last 24 Hrs of Vital Signs/I&O Vital Signs Date Time Temp Pulse Resp B/P B/P Pulse O2 O2 Flow FiO2 Mean Ox Delivery Rate 06/29 0531 97.8 48 12 118/58 92 Room Air 06/28 2144 97.2 48 20 120/50 96 Room Air 06/28 1452 97.8 60 20 128/68 94 Room Air Intake & Output 06/29 1600 06/29 0800 06/29 0000 Intake Total 750 Output Total Balance 750 Intake, Oral 750 Physical Exam General Appearance: Alert, Oriented X3, Cooperative Cardiovascular: Regular Rate, Normal S1, Normal S2 Lungs: Clear to Auscultation, Normal Air Movement Abdomen: Normal Bowel Sounds, Soft, No Tenderness Assessment/Plan Assessment: 72-year-old female with past medical history significant for depression, anxiety , schizophrenia(following psychiatrist), hypothyroidism, hypertension, hyperlipidemia, anemia, diabetes mellitus was brought to emergency department by family member for recent deterioration of mental status change. At the time of presentation to emergency department her vitals and labs are given below. Vitals: Afebrile, heart rate 56, respiratory rate 20, blood pressure 112/52, saturating at 97 on room air Labs WBC 7.5, hemoglobin 10, hematocrit 32, platelets 143 Urine analysis positive for esterase, 5-10 WBC, bacteria Sodium 139, potassium 4.3, BUN 24 and creatinine 1.2, glucose 107 Lactic acid 1.7 LFTs within normal limit Troponin negative Chest x-ray no acute cardiopulmonary findings CT abd: No acute findings identified in the abdomen/pelvis. Colonic diverticulosis without diverticulitis Problems list: *UTI *Recent deterioration of schizophrenia *Acute kidney injury *Generalized weakness *Orthostatic hypotension *Constipation *UTI: -3 antibiotic course for UTI completed -UTI treated. Recent deterioration of her shcizophrenia: Patient recent history of schizophrenia with delusions and follow-up psychiatry and taking antipsychotic medication, recent mental status change could be associated with deterioration of schizophrenia. -Anticipated discharge if she was stable from psychiatry point of view She also having visual and auditory hallucination history. We will continue her schizophrenia medication; -Psychiatric consult placed recommendation appreciated -Psychiatric seen the patient yesterday there is no new recommendation -The patient last agreed to go to rehab -Psychiatrist's will reassess the patient today and will follow recommendation Acute kidney injury: Patient having recently raised creatinine level up 1.2 and baseline creatinine was unknown. -It is most likely secondary to dehydration; -Fluid hydration done -Lisinopril does hold was kidney function normal will restart -Please avoid nephrotoxic medication Weakness: -Due to decrease oral intake the patient feeling weak -PT consult placed if she need short-term rehab or placement -Orthostatic hypotension: -She had orthostatic hypotension but now she is vitally stable Constipation: She complaining that she had history of constipation one week We will continue her on bowel regimen Her other medical condition will continue the same treatment Iron deficiency anemia continue iron sulfate *Depression continue Lexapro 10 daily *Anxiety continue clonazepam 0.5 - 3 times daily *Pain continue gabapentin 300- 3 times daily and Percocet every 8 hour as needed *Hypothyroidism continue levothyroxine 125 mcg daily *Hypertension hold lisinopril given creatinine 1.2 *Diabetes mellitus continue Accu-Cheks and NovoLog sliding scale *Anticipated discharge if she is stable from psychiatry Problem List: 1. Schizophrenia 2. Orthostasis 3. UTI (urinary tract infection) 4. Weakness 5. Fracture of fifth metatarsal bone of right foot Pain Ratin Pain Location: No pain Pain Goal: Remain pain free Pain Plan: Pain management pathway Tomorrow's Labs & Rationales: No labs Cb Orozco MD 06/29/18 1827: Attending MD Review Statement Attending Statement Attending MD Statement: examined this patient, discuss w/resident/PA/SECURITY SYSTEM INSTALLER, agreed w/resident/PA/SECURITY SYSTEM INSTALLER, discussed with family, reviewed EMR data (avail), discussed with nursing, discussed with case mgmt, amended to note Attending Assessment/Plan: The patient was seen and discussed with house staff, nursing, family and case management. Appreciate psychiatry follow-up. OK to discharge home today. The patient requested prescription for Clonazepam, however [place]MP suggested she had received 90 pills from her psychiatrist on 06/10 and has refills. Needs close psych follow-up. W10 completed for home care services.
[2018-06-29] MEDS ORDERED: SEROQUEL300 M1 PO ×2 (14:38→15:47)
--- NOTE | 2018-06-29 14:47 | PN- Psychiatry ---
Assessment/Plan Impression: Dulce today has been calmer with less paranoid preocuppations. No recent VH. Slept last evening after 300 mg QHS seroquel. Affect is more reactive. Asking about her medication changes. Wants to come off Klonopin completely. Wants to go back to day care program. Also would like to see a psychiatrist in the area; TOelrating medication regimen well. Ambulated w/o much difficulty. No dizziness or ligtheadedness MSE [place] woman, lying in bed. AAox3. Reactive affect. No SI/HI. No AVH organized, linear. I/J Fair. A/P 72 y/o Female presented to hospital with acute changes MS. She has had about 9-1 yr of pychotic phenomenology. Also decline in excutive functioning. Psychotic phenomenology seems worse in evenings. Differential high on the list ofr MNCD with psychotic symptoms. Pt is cleared to be go home. Fmaily at bedside. Given insturctions on medication admon and regimen for DC Klonopin 0.5mg BID. Neurontin 300 mg TID. Lexapro 10 mg daily. Seroquel 300 mg HS. Family will be given avis on psychiatric resources at intake PN provided. Laso pt needs to establish care with PC to continue workup of MNCD. Suggestion: t will be dc home with instructions for follow up care with psychiatry at and ne PC here as well. She needs OP workup of dementia. Subjective Subjective: Dulce is calmer with le ss psychotic phenomenolgoy overall. Ready to go home. Objective Last 24 Hrs of Vital Signs/I&O Vital Signs Date Time Temp Pulse Resp B/P B/P Pulse O2 O2 Flow FiO2 Mean Ox Delivery Rate 06/29 531 97.8 48 12 118/58 92 Room Air 06/28 2144 97.2 48 20 120/50 96 Room Air 06/28 1452 97.8 60 20 128/68 94 Room Air Intake & Output 06/29 1600 06/29 0800 06/29 0000 Intake Total 600 750 Output Total Balance 600 750 Intake, Oral 600 750
[2018-06-29] MEDS ORDERED: ESCITALOPRAM OX10 MG PO (15:47)
[2018-06-29] MEDS ORDERED: GABAPENTIN300 M2 PO (15:47)
[2018-06-29] MEDS ORDERED: CLONAZEPAM0.5 M2 PO (15:47)
--- NOTE | 2018-06-29 20:43 | Discharge Summary ---
Hospital Course Allergies: Coded Allergies: acetaminophen (From PERCOCET) (Intermediate, BILATERAL LEG SWELLING 11/09/17) oxycodone (From PERCOCET) (Intermediate, BILATERAL LEG SWELLING 11/09/17) Discharge Instructions Medications at Discharge Discharge Medications: Stop taking the following medications: Aripiprazole (Abilify) 10 MG TABLET ORAL DAILY Qty = 30 Continue taking these medications: Levothyroxine Sodium (Levothyroxine Sodium) 125 MCG TABLET 1 Tablet ORAL DAILY Qty = 30 Comments: Last Taken: 06/27/18 Time: 6:00 AM Metformin HCl (Metformin HCl) 1,000 MG TABLET 1 Tablet ORAL DAILY Qty = 90 Comments: NOT GIVEN IN HOSPTIAL Lisinopril (Lisinopril) 10 MG TABLET 1 Tablet ORAL DAILY Qty = 90 Comments: NOT GIVEN IN HOSPITAL Ferrous Sulfate (Ferrous Sulfate) 325 MG (65 MG IRON) TABLET 1 Tablet ORAL DAILY Comments: NOT GIVEN IN HOSPITAL Start taking the following new medications: Quetiapine Fumarate (Seroquel) 300 MG TABLET 300 Milligram ORAL DAILY Qty = 30 No Refills Instructions: . The following medications have been changed: Old: Clonazepam (Clonazepam) 0.5 MG TABLET 1 Tablet ORAL THREE TIMES DAILY Qty = 90 New: Clonazepam (Clonazepam) 0.5 MG TABLET 1 Tablet ORAL TWICE DAILY Qty = 60 Comments: LAST GIVEN 06/29/16 @ 1145 Old: Gabapentin (Gabapentin) 300 MG CAPSULE 1 Capsule ORAL THREE TIMES DAILY Qty = 90 New: Gabapentin (Gabapentin) 300 MG CAPSULE 1 Capsule ORAL THREE TIMES DAILY Qty = 90 Instructions: . Comments: LAST GIVEN 06/29/18 @ 1430 Old: Escitalopram Oxalate (Escitalopram Oxalate) 10 MG TABLET 1 Tablet ORAL DAILY Qty = 30 New: Escitalopram Oxalate (Escitalopram Oxalate) 10 MG TABLET 1 Tablet ORAL DAILY Qty = 30 Instructions: . Comments: LAST GIVEN 06/29/18 @ 1141
== END 2018-06-29 16:13 | disposition home health service (06) | DRG 690 ==
LOC: ERH 00:36 → 2NB 04:00 → ERHI 04:00 → ENRESERV 18:46 → ENTRNSPT 20:35 → EDTRNSPTSTS 20:42 → 2NB 20:46 → CMPTRNSPT 20:57 → 2NB 06-27 17:14 → ENTRNSPT 06-29 16:01 → EDTRNSPTTYP 06-29 16:02 → EDTRNSPT 06-29 16:02 → EDTRNSPTSTS 06-29 16:10 → 2NB 06-29 16:13 → CMPTRNSPT 06-29 16:29
PROVIDERS: Hospitalist; Pediatrics; Preventive Medicine Addiction Medicine
DX: N39.0 Urinary tract infection, site not specified (principal); N17.9 Acute kidney failure, unspecified; F20.89 Other schizophrenia; I95.1 Orthostatic hypotension; F41.9 Anxiety disorder, unspecified; F32.9 Major depressive disorder, single episode, unspecified; R63.4 Abnormal weight loss; Z68.33 Body mass index [BMI] 33.0-33.9, adult; E86.0 Dehydration; E11.9 Type 2 diabetes mellitus without complications; F29 Unspecified psychosis not due to a substance or known physiological condition; E03.9 Hypothyroidism, unspecified; E78.5 Hyperlipidemia, unspecified; Z88.5 Allergy status to narcotic agent; Z79.84 Long term (current) use of oral hypoglycemic drugs; E55.9 Vitamin D deficiency, unspecified; K59.00 Constipation, unspecified
CPT/HCPCS: 2NBP; 2NBSP; 71045; 74176; 81001; 82436; 87040; 87086; 93005; 93010; 96374; 97116-GO; 97161-GP; J0401; J0696; J1644

== ENCOUNTER 2018-07-17 10:29 | Emergency (ER) | payer OTHER ==
[~2018-07-17] VITALS: Ht 157.5 cm; Wt 89.8 kg
[~2018-07-17 10:29] MED LIST changes: +ABILIFY10 M1 PO; +CLONAZEPAM0.5 M2 PO; +ESCITALOPRAM OX10 MG PO; +FERROUS SULFAT325 M3 PO; +GABAPENTIN300 M2 PO; +LEVOTHYROXINE125 MCG PO; +LISINOPRIL10 M1 PO; +METFORMIN HCL1000 M1 PO; +SEROQUEL300 M1 PO
[2018-07-17 10:55] VITALS: BP 131/46
[2018-07-17 14:29] LABS: ABSOLUTE BASOPHIL COUNT 0 /CUMM (0.0-0.2); ABSOLUTE EOSINOPHIL COUNT 0.2 /CUMM (0.0-0.7); ABSOLUTE GRANULOCYTE CT 2.9 /CUMM (1.4-6.5); ABSOLUTE LYMPH COUNT 1.9 /CUMM (1.2-3.4); ABSOLUTE MONOCYTE COUNT 0.3 /CUMM (0.10-0.60); BASOPHIL % 0.9 % (0.0-2.0); EOSINOPHIL % 2.9 % (0-5); GRANULOCYTE % 54.5 % (42.2-75.2); HEMATOCRIT 34.8 % (37-47); MEAN CORPUSCULAR HGB 30.7 PG (27.0-31.0); MEAN CORPUSCULAR HGB CONC 34.4 G/DL (33.0-37.0); MEAN CORPUSCULAR VOLUME 89.2 FL (81.0-99.0); PLATELET COUNT 155 /CUMM (130-400); RBC DISTRIBUTION WIDTH 14.3 % (11.5-14.5); WHITE BLOOD CELL COUNT 5.2 /CUMM (4.8-10.8)
--- NOTE | 2018-07-17 14:36 | ED GENERAL ADULT ---
History of Present Illness General Chief Complaint: Female Urogenital Problems Stated Complaint: ?UTI Source: patient Exam Limitations: no limitations Vital Signs & Intake/Output Vital Signs & Intake/Output Vital Signs Date Time Temp Pulse Resp B/P B/P Pulse O2 O2 Flow FiO2 Mean Ox Delivery Rate 07/17 1055 96.3 60 16 131/46 96 Room Air Allergies Coded Allergies: acetaminophen (From PERCOCET) (Intermediate, BILATERAL LEG SWELLING 07/09/18) oxycodone (From PERCOCET) (Intermediate, BILATERAL LEG SWELLING 07/09/18) Reconcile Medications Clonazepam 0.5 MG TABLET 1 TAB PO BID ANXIETY Escitalopram Oxalate 10 MG TABLET 1 TAB PO DAILY DEPRESSION . Ferrous Sulfate 325 MG (65 MG IRON) TABLET 1 TAB PO DAILY IRON (Reported) Gabapentin 300 MG CAPSULE 1 CAP PO TID PAIN . Levothyroxine Sodium 125 MCG TABLET 1 TAB PO DAILY AC THYROID (Reported) Lisinopril 10 MG TABLET 1 TAB PO DAILY HTN (Reported) Metformin HCl 1,000 MG TABLET 1 TAB PO DAILY DM (Reported) Quetiapine Fumarate (Seroquel) 300 MG TABLET 300 MG PO DAILY schizoprenia . Triage Note: 72 Y/O FEMALE C/O ? UTI. PT AND DAUGHTER STATE SHE WAS ADMITTED RECENTLY FOR SAME AND "HASNT BEEN HERSELF" SINCE DISCHARGE. DAUGHTER STATES SHE HAS HAD TO HELP PT BATHE WHICH IS NOT NORMAL AND HAS NOTICED A "STRONG ODOR" TO HER. DAUGHTER REPORTS EPISODES OF INCONTINENCE WHICH IS NOT BASELINE. PT REPORTS INTERMITTENT NAUSEA AND DECREASED APPETITE. AFEBRILE Triage Nurses Notes Reviewed? yes HPI: 72-year-old white female with history of UTI and schizophrenia presents with a sense of urinary urgency over the past 2 days and noted that her urine was cloudy. She denies any abdominal pain, nausea, vomiting, but does admit to chronic back pain that she attributes to herniated disc. She also denies any fever, chills, chest pain, shortness of breath, rash. Patient was recently admitted to this hospital for treatment of UTI and her schizophrenia. Past History Travel History Traveled to [place] past 21 day No Medical History Any Pertinent Medical History? 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 No Review of Systems Review of Systems Constitutional: Reports: see HPI. Denies: no symptoms, chills, diaphoresis, fever, malaise, weakness, unexplained weight loss. All Other Systems: Reviewed and Negative Physical Exam Physical Exam General Appearance: well developed/nourished, no apparent distress, alert, awake Head: atraumatic, normal appearance Eyes: Bilateral: normal appearance, PERRL. Ears, Nose, Throat: normal pharynx, normal ENT inspection, hearing grossly normal Neck: normal inspection, supple, full range of motion Respiratory: normal breath sounds, chest non-tender, no respiratory distress Cardiovascular: regular rate/rhythm Gastrointestinal: normal bowel sounds, soft, non-tender, no organomegaly Back: no vertebral tenderness Extremities: normal inspection Neurologic/Psych: no motor/sensory deficits, awake, alert, oriented x 3, depressed affect Core Measures ACS in differential dx? No CVA/TIA Diagnosis: No Sepsis Present: No Sepsis Focused Exam Completed? No Progress Differential Diagnoses I considered the following diagnoses in my evaluation of the patient: [UTI, functional incontinence, electrolyte disturbance] Plan of Care: Orders Procedure Date/time Status LACTIC ACID 07/17 1415 Active URINALYSIS 07/17 1115 Complete LACTIC ACID 07/17 1115 Complete COMPREHENSIVE METABOLIC PANEL 07/17 1115 Complete CBC WITHOUT DIFFERENTIAL 07/17 1115 Complete Laboratory Tests 07/17/18 1400: Anion Gap 8, Estimated GFR 49 L, BUN/Creatinine Ratio 17.3, Glucose 74, Lactic Acid 1.5, Calcium 10.2, Total Bilirubin 0.5, AST 24, ALT 23, Alkaline Phosphatase 98, Total Protein 7.4, Albumin 4.4, Globulin 3.0, Albumin/Globulin Ratio 1.5, CBC w Diff NO MAN DIFF REQ, RBC 3.90 L, MCV 89.2, MCH 30.7, MCHC 34.4, RDW 14.3, MPV 8.0, Gran % 54.5, Lymphocytes % 36.8, Monocytes % 4.9, Eosinophils % 2.9, Basophils % 0.9, Absolute Granulocytes 2.9, Absolute Lymphocytes 1.9, Absolute Monocytes 0.3, Absolute Eosinophils 0.2, Absolute Basophils 0 07/17/18 1239: Urine Color YEL, Urine Clarity CLEAR, Urine pH 6.0, Ur Specific Hope 1.020, Urine Protein NEG, Urine Ketones NEG, Urine Nitrite NEG, Urine Bilirubin NEG, Urine Urobilinogen 1.0, Ur Leukocyte Esterase NEG, Ur Microscopic SEDIMENT EXAMINED, Urine RBC 1-3, Urine WBC RARE, Ur Epithelial Cells FEW, Urine Bacteria RARE H, Urine Hemoglobin TRACE-INTACT, Urine Glucose NEG Initial ED EKG: not indicated Comments: Patient's daughter arrived to report that the patient hasn't been using genital hygiene. She has not seen a visual communications instructor for years. I reviewed the lab data with the patient and dennis and will refer to pipeline operator for outpatient evaluation. Departure Departure Time of Disposition: 150 Disposition: HOME OR SELF CARE Condition: Stable Clinical Impression Primary Impression: Urinary incontinence Qualifiers: Urinary Incontinence type: functional incontinence Qualified Code: R39.81 - Functional urinary incontinence Referrals: Gini MENDEZ,Charlie Garay (PCP/Family) Additional Instructions: Please follow up with Dr SANCHEZ (visual communications instructor) [phone] Departure Forms: Customer Survey General Discharge Information Critical Care Note Critical Care Note Critical Care Time: non-applicable
[2018-07-17] MEDS ORDERED: CELEBREX200 M1 PO (15:25)
== END 2018-07-17 15:28 ==
LOC: ERH 10:29
PROVIDERS: Physician Assistant Medical
DX: R39.81 Functional urinary incontinence (principal); E78.5 Hyperlipidemia, unspecified; F41.9 Anxiety disorder, unspecified; F20.9 Schizophrenia, unspecified; E11.9 Type 2 diabetes mellitus without complications; E03.9 Hypothyroidism, unspecified; F17.210 Nicotine dependence, cigarettes, uncomplicated
CPT/HCPCS: 81001